=== PATIENT | male | born 1955 | race Caucasian/White ===

== ENCOUNTER 2022-09-22 15:44 | Emergency (ER) | payer OTHER ==
[~2022-09-22] VITALS: Ht 177.8 cm; Wt 65.8 kg
[2022-09-22] MEDS ORDERED: SYMBICORT 16010.2 GM IH (16:27)
[2022-09-22] MEDS ORDERED: SPIRIVA RESPIMAT4 GM IH (16:28)
[2022-09-22] MEDS ORDERED: PROAIR RESPICL90 MCG IH (16:29)
[2022-09-22] MEDS ORDERED: ZITHROMAX500 MG PO (21:47)
== END 2022-09-22 22:48 | disposition home or self-care (01) ==
LOC: ER 15:44
DX: J44.1 Chronic obstructive pulmonary disease with (acute) exacerbation (principal); Z20.822 Contact with and (suspected) exposure to COVID-19